=== PATIENT | female | born 1970 | race Caucasian/White ===

== ENCOUNTER 2021-11-18 14:25 | Outpatient (CLI) | payer OTHER, SELFPAY ==
--- NOTE | 2021-11-18 14:40 | CRLHL7_ITS ---
For Patients: As a result of the Century Cures Act, medical imaging exams and procedure reports are released immediately into your electronic medical record. You may view this report before your referring provider. If you have questions, please contact your health care provider. BILATERAL SCREENING MAMMOGRAM WITH COMPUTER-AIDED DETECTION AND TOMOSYNTHESIS TECHNIQUE: CC and MLO views were obtained. These mammographic images have been obtained using full-field digital technique. These mammographic images were interpreted with the benefit of computer-aided detection. Breast Tomosynthesis was used in this interpretation. COMPARISON FILM: [facility] 07/29/19, 08/15/17. FINDINGS: There are scattered areas of fibroglandular density IMPRESSION: There is no radiographic evidence for malignancy. ASSESSMENT: BI-RADS Category 1: Negative RECOMMENDATION: Routine screening mammogram in 1 year. A lay language report of this examination will be provided to the patient. Ramon Lake M.D. Diagnostic Radiologist [email or web address] BERTRAM/Dictated by: Ramon Lake MD @ 11/24/2021 1:23:00 PM (Electronically Signed)
== END 2021-11-18 14:26 | disposition home or self-care (01) ==
LOC: MAMMO 14:26
PROVIDERS: Visit Provider Family Medicine
DX: Z12.31 Encounter for screening mammogram for malignant neoplasm of breast (principal)
CPT/HCPCS: 77063; 77067

== ENCOUNTER 2022-04-21 10:13 | Outpatient (CLI) | payer OTHER, SELFPAY ==
[2022-04-21 11:37] LABS: Chloride* 109 mmol/L (96-114); Potassium* 4.4 mmol/L (3.6-5.1); Sodium* 141 mmol/L (135-149)
[2022-04-21 11:40] LABS: Blood Urea Nitrogen* 14 mg/dL (5-24); Carbon Dioxide* 28 mmol/L (20-32); Creatinine* 0.9 mg/dL (0.5-1.5); Estimated Glomerular Filt Rate 78 ml/min; Glucose* 95 mg/dL (60-115)
[2022-04-21 11:41] LABS: Calcium* 9.4 mg/dL (8.4-10.6)
[2022-04-21 11:51] LABS: Vitamin D 25 Hydroxy* 43 ng/mL (30-80)
== END 2022-04-21 10:14 | disposition home or self-care (01) ==
PROVIDERS: Visit Provider Family Medicine
DX: E55.9 Vitamin D deficiency, unspecified (principal)
CPT/HCPCS: 80048; 82306; 84443

== ENCOUNTER 2022-07-11 14:15 | Outpatient (RCR) | payer OTHER, SELFPAY ==
--- NOTE | 2022-06-27 16:20 | PT.OPEX ---
PT [facility] Outpatient Eval PT [facility] Outpatient Eval Start: 06/27/22 14:18 Freq: Status: Active Protocol: Document 06/27/22 14:18 [facility] (Rec: 06/27/22 16:02 [facility] [id number]) E-signed By Yomi Walker, PT Physical Therapy Outpatient Evaluation Insurance Information Insurance Name [employer] Medical Diagnosis Cervicalgia M54.2 Low back pain, unspecified M54 .50 Other chronic pain G89.[address] Ramon Roman Subjective Subjective Pt reports that ~2 years ago she herniated two discs in between her shoulder blades, pain in upper back and numbness down right UE. It then spread into her left UE. ~2 1/2 weeks ago she started having R UE symptoms (numbness ) while sleeping. She managed it by sitting in recliner and heating pad. Symptoms have again progressed and worsened to include wraparound pain under left breast/rib cage and left shoulder blade. Since starting the Prednisone, the distal UE symptoms have diminished but she still has left sided shoulder/rib pain and will get neck muscle spasms when the flexoril wears off. Date of Last Physician Visit 06/23/22 Current Work Status Short Term Disability Occupation Housecleaning for [employer]: work requirements are: getting on hands/knees onto floor to clean ER beds/floors, heavy lifting of linen/garbage bags (up to 35-50 lbs), push/ pulling cart/garbage cans simultaneously, repetitive UE/ circular motion, mopping (this is the most painful) Objective Other/Pertinent Objective Cervical: AROM Flexion: 33 deg, stretch at end range Extension: 45 deg, end range pain at base of neck Sidebend: R 20 (Pain L neck) L 25 deg (pain R neck/base of neck) Rotation: R 55 deg / L 45 deg (stiff but not painful) Cervical strength: Sidebend 4/ 5, Flexion 3+/5 painful base of neck Extension 4-/5 Shoulder: AROM WNL except left shoulder IR AROM painful in shoulder pain end range Shoulder Strength: grossly 4+/ 5 except L IR 4/5 and painful shoulder blade bicep 5/5, tricep 5/5 Cervical: compression and distraction both increased pain Palpation: + tenderness along cervical spine, upper traps and med scap border, bilaterally low tolerance for STM to cervical psps or cervical traction Posture: flattened cervical spine Sensation: light touch intact shirley UEs Upper limb tension tests: + for median and radial nerve tension R UE, negative otherwise Functional Test Performed & Score Neck Disability Index:26/50 - Severe Disability Assessment Assessment/Impression 51 year old female presents with signs and symptoms consistent with L > R UE radiculopathy from multi-level disc protrusions. This appears to be a flare of symptoms similar to impairments she had two years ago. At that time, an MRI from 06/04/20 confirmed multiple cervical disc protrusions, the most concerning at C5-6 w/ a left paracentral protrusion and moderate cord deformity. Despite a course of steroids ( which did help somewhat) and currently on Flexoril and pain meds, patient's symptoms remain highly irritable. She demonstrates low tolerance for soft tissue palpation and cervical traction worsened pain up and down her cervical spine, indicating dural irritation. Neck disability index scored a 26/50, which places her in the severe disability range. 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. The physical demands are too great and it would be very difficult to maintain a light duty status. I recommend a minimum of two weeks off from work, likely more, depending on how she responds to physical therapy. Primary Functional Limitations Heavy lifting, pushing/pulling , weight bearing through arms, repetitive motions of arms, mopping sleeping, prolonged sitting Plan of Care Rehabilitation Potential Good Rehabilitation Potential Comments Pt is self-motivated and will be compliant with PT Physical Therapy Goals In 4-6 weeks, patient will: 1) Tolerate repetitive circular motions of arms, below and above shoulder height, to be able to clean surfaces 2) Be able to get on hands and knees to clean ER room floors /base of beds, etc 3) Lift and transfer 35-50lb linen bag to cart pain max 3/ 10 4) Pull weighted garbage bin and push weighted cart, pain max 3/10 5) Report 75% improvement in sleep ability in regards to neck pain Coordination/Communication With Referral Source Treatment Plan/Direct Interventions Joint Mobilization,Manual Therapy,Neuromuscular Re-ed, Self-Care/Home Management, Therapeutic Activities, Therapeutic Exercises,Other - See Comments Direct Interventions Clarification AROM/strength, posture/neck Comments care, cervical stab ex, nerve mob, STM/traction Frequency/Duration 1-2x/week for 4-6 weeks Patient Will Be Discharged From Therapy Completion of LTG(s), Independent w/HEP, Independently Progressing Evaluation Billing Untimed Code Treatment Minutes 35 Complexity Moderate Certification Information Physician Comment/Change : Physician NPI Number #
== END 2022-11-08 23:59 | disposition home or self-care (01) ==
PROVIDERS: PCP Family Medicine; Visit Provider Family Medicine
DX: M54.2 Cervicalgia (principal); M54.50 Low back pain, unspecified; G89.29 Other chronic pain; Z51.89 Encounter for other specified aftercare
CPT/HCPCS: 97110; 97140; 97162; 97530

== ENCOUNTER 2022-11-04 12:51 | Emergency (ER) | payer OTHER, SELFPAY ==
[2022-11-04 12:54] VITALS: BP 147/82; PULSE 82; RESP 18; TEMP 36.6; O2SAT 98; BMI 23.4
[2022-11-04] MEDS: KETOROLAC 30 MG/ML inj IM (13:18)
[2022-11-04] MEDS: AMOXICILLIN/CLAVULANATE 875 mg/125 mg TABLET PO (13:19)
--- NOTE | 2022-11-04 13:28 | ED.NURSE ---
Wrapped some hibiclens soaked gauze around the arm to cleanse and disinfect.
--- NOTE | 2022-11-04 13:32 | ED.NURSE ---
Wound assessment: Patient has various scratches and punctures (appear to be mostly superficial) down the forearm to the hand. Slightly bleeding.
--- NOTE | 2022-11-04 13:36 | ED.ANIMALBIT ---
HPI - Animal Bite General Date Seen: 11/04/22 Chief Complaint: Animal Bite Stated Complaint: cat bite Time Seen by Provider: 11/04/22 12:53 History of Present Illness HPI narrative: Patient is a 52-year-old female presented emergency department for cat bite and scratch. She states it was her own cat is vaccinated for rabies. She states when family came over they brought a dog tired CT does not like dogs. The dog Tod scared the CT causing him to jump on her and scratch and bite her right arm multiple times. She states other than that the cat has been acting normally. She came in because she was aware she would probably need antibiotics. Says she is having pain to the right arm at this time. Denies any numbness or tingling. No other injuries noted. Related Data Home Medications Medication Instructions Recorded Confirmed diclofenac sodium 1 % topical gel 2 - 4 g topical QID PRN 05/12/22 06/28/22 (Voltaren Arthritis Pain) progesterone micronized 100 mg 100 mg PO QDAY 05/12/22 06/28/22 capsule Saccharomyces boulardii 250 mg 250 mg PO DAILY 06/19/22 06/28/22 capsule (Daily Probiotic (S. boulardii)) acetaminophen 650 mg 1,300 mg PO QDAY PRN 06/28/22 06/28/22 tablet,extended release (Tylenol Arthritis Pain) naproxen sodium 220 mg capsule 660 mg PO BID PRN 06/28/22 06/28/22 (Aleve) Previous Rx's Medication Instructions Recorded lidocaine 5 % topical ointment 1 applic topical QDAY PRN pain #60 09/28/21 grams estradiol 0.075 mg/24 hr 1 patch transdermal 2XW #24 ea 03/27/22 semiweekly transdermal patch cyclobenzaprine 10 mg tablet 10 mg PO BID PRN muscle spasm #60 06/28/22 tabs dextroamphetamine-amphetamine 10 10 mg PO QDAY #30 tabs 09/29/22 mg tablet (Adderall) dextroamphetamine-amphetamine 10 10 mg PO QDAY #30 tabs 09/29/22 mg tablet (Adderall) dextroamphetamine-amphetamine 10 10 mg PO QDAY #30 tabs 09/29/22 mg tablet (Adderall) dextroamphetamine-amphetamine ER 20 mg PO QAM #30 caps 09/29/22 20 mg 24hr capsule,extend release dextroamphetamine-amphetamine ER 20 mg PO QAM #30 caps 09/29/22 20 mg 24hr capsule,extend release (Adderall XR) dextroamphetamine-amphetamine ER 20 mg PO QAM #30 caps 09/29/22 20 mg 24hr capsule,extend release (Adderall XR) dextroamphetamine-amphetamine 20 20 mg PO QDAY #30 tabs 10/06/22 mg tablet (Adderall) amoxicillin 875 mg-potassium 1 tab PO BID #14 tabs 11/04/22 clavulanate 125 mg tablet Allergies Allergy/AdvReac Type Severity Reaction Status Date / Time gabapentin Allergy Intermediate groggy Verified 06/28/22 10:36 Review of Systems Narrative: ROS is negative unless otherwise stated in HPI PFSH PFS Medical History ADHD, predominantly inattentive type ?F90.0 - Attention-deficit hyperactivity disorder, predominantly inattentive type (ICD-10) Obstructive sleep apnea ?G47.33 - Obstructive sleep apnea (adult) (pediatric) (ICD-10) Vitamin D deficiency ?E55.9 - Vitamin D deficiency, unspecified (ICD-10) IBS (irritable bowel syndrome) ?K58.9 - Irritable bowel syndrome without diarrhea (ICD-10) History of migraine ?Z86.69 - Personal history of other diseases of the nervous system and sense organs (ICD-10) Exogenous obesity ?E66.09 - Other obesity due to excess calories (ICD-10) Chronic low back pain ?M54.50 - Low back pain, unspecified (ICD-10) ?G89.29 - Other chronic pain (ICD-10) Surgical History History of endometrial ablation ?Z98.890 - Other specified postprocedural states (ICD-10) History of tonsillectomy ?Z90.89 - Acquired absence of other organs (ICD-10) History of hand surgery ?Z98.890 - Other specified postprocedural states (ICD-10) History of appendectomy ?Z90.49 - Acquired absence of other specified parts of digestive tract (ICD-10) Family History Daughter ADHD Mother Diabetes Maternal Grandfather Diabetes Maternal Grandmother Diabetes Social History Narrative: , 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 Moist mucous membranes. CVS: Peripheral pulses 2+ and equal in all extremities MSK:Extremities w/o deformity, Normal Active ROM Skin: Warm, Dry. Multiple superficial abrasions to her right forearm Neuro: Normal Muscle tone, No focal neurological deficits. Psych: Awake, Alert, & Oriented x3. Appropriate mood and affect. Const: Vital Signs, click to edit/add: Vital Signs - 24 hr 11/04/22 12:54 Temperature 97.8 F Pulse Rate [Right Pulse Oximeter] 82 Respiratory Rate 18 Blood Pressure [Ri ght Upper Arm] 147/82 H Pulse Oximetry 98 Oxygen Delivery Me thod Room Air Course Vital Signs Vital signs: Initial Vital Signs Temperature 97.8 F 11/04/22 12:54 Temperature Source Temporal Artery Scan 11/04/22 12:54 Pulse Rate 82 11/04/22 12:54 Respiratory Rate 18 11/04/22 12:54 Blood Pressure 147/82 H 11/04/22 12:54 Blood Pressure Mean 103 11/04/22 12:54 Blood Pressure Position Sitting 11/04/22 12:54 Pulse Oximetry 98 11/04/22 12:54 Oxygen Delivery Method Room Air 11/04/22 12:54 Vital Signs Temperature 97.8 F 11/04/22 12:54 Pulse Rate 82 11/04/22 12:54 Respiratory Rate 18 11/04/22 12:54 Blood Pressure 147/82 H 11/04/22 12:54 Pulse Oximetry 98 11/04/22 12:54 Oxygen Delivery Method Room Air 11/04/22 12:54 Temperature 97.8 F 11/04/22 12:54 Pulse Rate 82 11/04/22 12:54 Respiratory Rate 18 11/04/22 12:54 Blood Pressure 147/82 H 11/04/22 12:54 Pulse Oximetry 98 11/04/22 12:54 Oxygen Delivery Method Room Air 11/04/22 12:54 MDM - Animal Bite MDM Narrative Medical decision making narrative: Patient is a 52-year-old female presenting for scratches in bites to her right forearm from her cat that has extended for rabies. She states those acting normal. She can manage for possible antibiotics. She says the pains and nontender right now Toradol was given for pain. She is started on Augmentin. No known medication allergies other than gabapentin. Since the cat is vaccinated for rabies and it is her cat I do not believe is necessary to start the rabies prophylaxis at this time. Patient is still having some pain and also the Toradol so 1 dose of oxycodone p.o. was given. Patient is agreeable to this plan. She was discharged home with Augmentin. Discharge Plan Discharge Clinical Impression: Cat bite Qualifiers: Encounter type: initial encounter Qualified Code(s): W55.01XA - Bitten by cat, initial encounter Patient Disposition: Home, Self-Care Condition: Stable Instructions: Animal Bite (ED) Additional Instructions: Follow-up with the primary care provider. Take the Augmentin as directed. Return for new or worsening symptoms. Activity Level: No Restrictions Discharge Diet: Regular Prescriptions: New amoxicillin-pot clavulanate 875-125 mg tablet 1 tab PO BID Qty: 14 0RF No Action progesterone micronized 100 mg capsule 100 mg PO QDAY Saccharomyces boulardii [Daily Probiotic (S. boulardii)] 250 mg capsule 250 mg PO DAILY naproxen sodium [Aleve] 220 mg capsule 660 mg PO BID PRN acetaminophen [Tylenol Arthritis Pain] 650 mg tablet extended release 1,300 mg PO QDAY PRN cyclobenzaprine 10 mg tablet 10 mg PO BID PRN (Reason: muscle spasm) Qty: 60 1RF lidocaine 5 % ointment 1 applic topical QDAY PRN (Reason: pain) Qty: 60 1RF estradiol 0.075 mg/24 hr patch semiweekly 1 patch transdermal 2XW Qty: 24 0RF Rx Instructions: apply 1 patch for 3 days alternating with 1 patch for 4 days each week for 3 wks per 4-wk cycle diclofenac sodium [Voltaren Arthritis Pain] 1 % gel 2 - 4 g topical QID PRN Rx Instructions: apply to single elbow, wrist or hand; for hand includes palm/fingers/back of hand dextroamphetamine-amphetamine [Adderall] 10 mg tablet 10 mg PO QDAY Qty: 30 0RF dextroamphetamine-amphetamine [Adderall] 10 mg tablet 10 mg PO QDAY Qty: 30 0RF dextroamphetamine-amphetamine [Adderall XR] 20 mg capsule,extended release 24hr 20 mg PO QAM Qty: 30 0RF dextroamphetamine-amphetamine [Adderall XR] 20 mg capsule,extended release 24hr 20 mg PO QAM Qty: 30 0RF dextroamphetamine-amphetamine [Adderall] 10 mg tablet 10 mg PO QDAY Qty: 30 0RF Rx Instructions: Take around 2 pm dextroamphetamine-amphetamine 20 mg capsule,extended release 24hr 20 mg PO QAM Qty: 30 0RF dextroamphetamine-amphetamine [Adderall] 20 mg tablet 20 mg PO QDAY Qty: 30 0RF Follow Up/Referrals: Ramon Roman MD [Primary Care Provider] - Stand Alone Forms: [facility] Info Instructions
[2022-11-04] MEDS: OXYCODONE 5 MG TABLET PO (13:48)
== END 2022-11-04 13:52 | disposition home or self-care (01) ==
PROVIDERS: Emergency Provider Student in an Organized Health Care Education/Training Program; PCP Family Medicine
DX: S41.151A Open bite of right upper arm, initial encounter (principal); W55.01XA Bitten by cat, initial encounter
CPT/HCPCS: 96372; 99282; 99283; 99284; A9270; J1885

== ENCOUNTER 2023-08-03 10:11 | Outpatient (CLI) | payer OTHER, SELFPAY ==
--- OUTSIDE RECORDS SUMMARY | 2023-08-03 10:13 | XMS_ITS | Clinical Summary ---
Author Organization [facility] Address [place], [place] [address] Care Team Providers Care Multimedia Coordinator Name Role Phone Unavailable Primary Care Provider Unavailabl e Allergies No known active allergies Medications Medication Sig Dispensed Refills Start Date End Date Status MEDROXYPROGESTERON E (CONTRACEPTIVE) 150 MG/ML IM SUSPIndications:Co ntraception inject 1 milliliter (150 mg) by intramuscular route every 3 months 1 0 11/05/2007 Active IBUPROFEN 200 MG TAB four tabs three times daily prn 0 12/23/2007 Active CPAP Autotitration cpap 4-20cm of H2O, with accessories dx780.57 1 0 01/14/2008 Active cyclobenzaprine (FLEXERIL) 10 mg tabletIndications: Tension headache Take 1 tablet by mouth 3 times daily. 30 tablet 1 01/20/2011 Active Active Problems Problem Noted Date Diagnosed Date Appendicitis with abscess 12/16/2009 Nicotine dependence 07/07/2008 Insomnia, unspecified 07/07/2008 Lateral Epicondyle Tendinosis 04/02/2008 KIM 12/28/2007 RDI- 5.5 01/14/2008 Dysthymic disorder 03/25/2007 Immunizations Name Administration Dates Next Due Hepatitis B (Adult) 09/05/1996,04/11/1994,1993 Influenza, IIV3 (Age >=3 years) 11/29/2010 MMR 05/20/2010 Td (Age >=7 Years) 04/29/2007,05/26/1997 Tuberculin (PPD) 04/25/2010 Varicella Vaccine 05/20/2010,08/14/1998 Family History Medical History Relation Name Comments Psychiatric illness Brother 1 Drug and alcolol issues Heart Disease Brother 2 Stroke Brother 3 Other Daughter 1 back issues,thy roid issues Other Daughter 2 cervical biopsy Unknown Father Arthritis Mother Diabetes Mother Heart Disease Mother Hyperlipidemia Mother Hypertension Mother Relation Name Status Comments Brother 1 Brother 2 Brother 3 Daughter 1 Daughter 2 Father Mother Social History Tobacco Use Types Packs/Day Years Used Date Smoking Tobacco: Every Day Cigarettes 0.3 25 Started: 06/10/1984; Last attempted to quit: 06/10/2009 Smokeless Tobacco: Never Alcohol Use Standard Drinks/Week Comments Yes 0 (1 standard drink = 0.6 oz pur e alcohol) occasional Sex and Gender Information Value Date Recorded Sex Assigned at Not on file Gender Identity Not on file Sexual Orientation Not on file Obstetrics History Para Term AB IAB SAB Ectopic Multiple Livin g Live Births 3 2 1 2 Date Outcome GA Total Labor Labor/2nd/3rd Weight Sex Delivery Anes PTL Rachel A1 A5 Name Cl in Para Para AB Last Filed Vital Signs Vital Sign Reading Time Taken Comments Blood Pressure 110/71 01/20/2011 9:44 AM WORK MANAGER Pulse 66 01/20/2011 9:44 AM WORK MANAGER Temperature 37 ??C (98.6 ??F) 01/24/2010 3:21 PM WORK MANAGER Respiratory Rate 16 01/19/2010 11:42 AM WORK MANAGER Oxygen Saturation 97% 01/19/2010 11:42 AM WORK MANAGER Inhaled Oxygen Concentration - - Weight 76.7 kg (169 lb 3.2 oz) 01/20/2011 9:44 A M WORK MANAGER Height 168.3 cm (5' 6.25) 11/29/2010 4:20 PM CD T Body Mass Index 27.1 11/29/2010 4:20 PM CDT Plan of Treatment Health Maintenance Due Date Last Done Comments Tdap 09/01/1983 Depression screening for age 12+ 1984 HIV for age 15-65 09/01/1987 BMI (ht and wt on same day) for age 18+ 1990 Hepatitis C screening for age 18-79 1990 Tetanus booster 04/29/2017 04/29/2007, 05/26/1997 Colonoscopy through age 75 2017 Lipids for age 45-75 2017 Mammogram for age 45-75 2017 Zoster (shingles) series for age 50+ (1 of 2) 2022 COVID-19 vaccine series ( - 2022-24 season) 2022 Influenza for age 50-64 11/11/2023 11/29/2010 Pap test for age 21-65 01/11/2024 , 01/10/2021, 09/28/2009, Additional history exists Pneumococcal series for age 6-64 Aged Out No longer eligible based on patient's age to complete this topic Procedures Procedure Name Priority Date/Time Associated Diagnosis Comments HPV THIN PREP Routine 01/10/2021 2:45 PM CDT from Last 3 Months or Most Recently Relevant to Health Maintenance Results * HPV HIGH RISK (01/10/2021 2:45 PM CDT) TYPE 16 Negative Negative 01/13/2021 3:09 PM CDT [facility] TYPE 18 Negative Negative 01/13/2021 3:09 PM CDT [facility] OTHER HIGH RISK TYPES Negative Negative 01/13/2021 3:09 PM CDT [facility] Other (Cervical/Vagina l) 01/10/2021 2:45 PM CDT 01/12/2021 9:36 AM CDT Narrative [facility] - 01/13/2021 3:09 PM CDT HPV types 16, 18, 31, 33, 35, 39, 45, 51, 52, 56, 58, 59, 66 and 68 DNA were undetectable or below the pre-set threshold. Methodology: [employer] 4800 HPV Test June L [facility] [address] [place] [address], [place] from Last 3 Months or Most Recently Relevant to Health Maintenance Advance Directives * Full Code (Latest Code Status on File) Date Activated Date Inactivated Comments 01/17/2010 4:42 PM 01/19/2010 4:36 PM * Full Code Date Activated Date Inactivated Comments 12/16/2009 7:53 PM 12/21/2009 1:33 PM
--- OUTSIDE RECORDS SUMMARY | 2023-08-03 10:13 | XMS_ITS | Clinical Summary ---
Author Organization [facility] Address [address] [place] [address]. [place] [address] Care Team Providers Care E Learning Manager Name Role Phone Cruz Soto MD Primary Care Provider [phone] Allergies Active Allergy Reactions Criticality Noted Date Comments Citalopram Unknown 05/13/2019 yawning Gabapentin Unknown 05/28/2014 Venlafaxine Anxiety Low 05/27/2019 Flight or fight sxs's Medications Medication Sig Dispensed Refills Start Date End Date Status dicyclomine (BENTYL) 20 MG tablet Take 20 mg by mouth 2 times daily Active ondansetron (ZOFRAN-ODT) 4 MG ODT tab Take 4 mg by mouth every 8 hours as needed for nausea Active hyoscyamine (LEVSIN/SL) 0.[address] 0.125 mg under the tongue every 8 hours as needed for cramping Active oxyCODONE (ROXICODONE) 5 MG tablet Take 1 tablet (5 mg) by mouth every 6 hours as needed for pain 12 tablet 01/17/2019 Active Active Problems Problem Noted Date Diagnosed Date Ischemic colitis (H24) 04/23/2019 Colitis 02/18/2018 Major depressive disorder, recurrent episode, mi ld (H24) 06/10/2014 Anxiety 06/10/2014 Hot flashes 06/10/2014 Tonsillar Calculus Overview: Created by Conversion Dyspareunia in female Overview: Created by Conversion Perimenopause Overview: Created by Conversion Joint Pain, Localized In The Hip Overview: Created by Conversion Dysthymic Disorder Overview: Created by Conversion Insomnia Overview: Created by Conversion Acute Tonsillitis Overview: Created by Conversion Lower Back Pain Overview: Created by Conversion Vitamin D Deficiency Overview: Created by Conversion Replacement Utility updated for latest IMO load Panic Disorder With Agoraphobia Overview: Created by Conversion Irritable bowel syndrome, unspecified type Sinus bradycardia Immunizations Name Administration Dates Next Due Flu, Unspecified 12/18/2011,11/29/2010 HepB, Unspecified 09/05/1996,04/11/1994,02/07/19 94 Influenza, seasonal, injectable, PF 12/11,01/01/2013,12/18/2011, 011 MMR 05/20/2010 TDAP (Adacel,Boostrix) 11/17/2015 Td,adult,historic,unspecified 04/29/2007, 998 Varicella 05/20/2010,08/14/1998 Social History Tobacco Use Types Packs/Day Years Used Date Smoking Tobacco: Former Smokeless Tobacco: Former Comments:summer 2018 Alcohol Use Standard Drinks/Week Comments No 0 (1 standard drink = 0.6 oz pur e alcohol) PHQ-2 Answer Date Recorded PHQ-2 Score 0 04/23/2019 Sex and Gender Information Value Date Recorded Sex Assigned at Not on file Gender Identity Not on file Sexual Orientation Not on file Last Filed Vital Signs Vital Sign Reading Time Taken Comments Blood Pressure 118/70 05/13/2019 2:14 PM BICYCLE I ASSEMBLER Pulse 60 05/13/2019 2:14 PM BICYCLE I ASSEMBLER Temperature 36.5 ??C (97.7 ??F) 04/23/2019 3:40 PM CS T Respiratory Rate 16 01/16/2019 8:21 PM BICYCLE I ASSEMBLER Oxygen Saturation 97% 05/13/2019 2:14 PM BICYCLE I ASSEMBLER Inhaled Oxygen Concentration - - Weight 74.4 kg (164 lb) 05/13/2019 2:14 PM BICYCLE I ASSEMBLER Height 167.6 cm (5' 6) 05/13/2019 2:14 PM BICYCLE I ASSEMBLER Body Mass Index 26.47 05/13/2019 2:14 PM BICYCLE I ASSEMBLER Plan of Treatment Not on file Care Teams E Learning Manager Relationship Specialty Start Date End Date Cruz Soto MD PCP - General Internal Medicine 01/16/19
--- OUTSIDE RECORDS SUMMARY | 2023-08-03 10:14 | XMS_ITS | Referral Summary ---
Author Organization [place] Address [facility] [place] [address] Care Team Providers Care Unit Supervisor Name Role Phone Cruz Soto MD Primary Care Provider [phone] Allergies Active Allergy Reactions Criticality Noted Date [...] Comments Blood Pressure 118/70 05/13/2019 2:14 PM DINING ROOM CAPTAIN Pulse 60 05/13/2019 2:14 PM DINING ROOM CAPTAIN Temperature 36.5 ??C (97.7 ??F) 04/23/2019 3:40 PM CS T Respiratory Rate 16 01/16/2019 8:21 PM DINING ROOM CAPTAIN Oxygen Saturation 97% 05/13/2019 2:14 PM DINING ROOM CAPTAIN Inhaled Oxygen Concentration - - Weight 74.4 kg (164 lb) 05/13/2019 2:14 PM DINING ROOM CAPTAIN Height 167.6 cm (5' 6) 05/13/2019 2:14 PM DINING ROOM CAPTAIN Body Mass Index 26.47 05/13/2019 2:14 PM DINING ROOM CAPTAIN Plan of Treatment Not on file Care Teams Unit Supervisor Relationship Specialty Start Date End Date Cruz Soto MD PCP - General Internal Medicine 01/16/19
--- OUTSIDE RECORDS SUMMARY | 2023-08-03 10:14 | XMS_ITS | Encounter Summary ---
Author Organization [place] Address [facility] [place] [address] Care Team Providers Care Hearing Therapy Director Name Role Phone Cruz Soto MD Primary Care Provider [phone] Cruz Soto MD Unavailable [phone] Encounter Details Date Type Department Care Team (Late st Contact Info) Description 02/14/2019 Records - [facility] CONVERSION Scan, Non-Provider Social History Tobacco Use Types Packs/Day Years Used Date Smoking Tobacco: Never Assessed Sex and Gender Information Value Date Recorded Sex Assigned at Not on file Gender Identity Not on file Sexual Orientation Not on file documented as of this encounter Plan of Treatment Not on file documented as of this encounter Visit Diagnoses Not on filedocumented in this encounter Care Teams Hearing Therapy Director Relationship Specialty Start Date End Date Cruz Soto MD PCP - General Internal Medicine 01/16/19 Cruz Soto MD [address] [place] [address] Assigned PCP 08/25/20 05/12/22 documented as of this encounter
== END 2023-08-03 10:12 | disposition home or self-care (01) ==
PROVIDERS: PCP Family Medicine; Visit Provider Family Medicine
DX: E55.9 Vitamin D deficiency, unspecified (principal); N95.1 Menopausal and female climacteric states
CPT/HCPCS: 80048; 80061; 82306; 82670; 83001; 83002; 84443

== ENCOUNTER 2023-12-05 09:25 | Outpatient (CLI) | payer OTHER, SELFPAY ==
--- NOTE | 2023-12-05 08:45 | CRLHL7_ITS ---
For Patients: As a result of the Century Cures Act, medical imaging exams and procedure reports are released immediately into your electronic medical record. You may view this report before your referring provider. If you have questions, please contact your health care provider. BILATERAL SCREENING MAMMOGRAM WITH COMPUTER-AIDED DETECTION AND TOMOSYNTHESIS TECHNIQUE: CC and MLO views were obtained. These mammographic images have been obtained using full-field digital technique. These mammographic images were interpreted with the benefit of computer-aided detection. Breast Tomosynthesis was used in this interpretation. COMPARISON FILM: 11/18/21, 07/29/19, 08/15/17. FINDINGS: There are scattered areas of fibroglandular density IMPRESSION: There is no radiographic evidence for malignancy. ASSESSMENT: BI-RADS Category 1: Negative RECOMMENDATION: Routine screening mammogram in 1 year. A lay language report of this examination will be provided to the patient. Ramon Lake M.D. Diagnostic Radiologist [email or web address] BERTRAM/Dictated by: Ramon Lake MD @ 12/13/2023 12:16:00 PM (Electronically Signed)
--- OUTSIDE RECORDS SUMMARY | 2023-12-05 09:31 | XMS_ITS | Clinical Summary ---
Author Organization [facility] Address [address] [place] [address]. [place] [address] Care Team Providers Care Instructional Facilitator Name Role Phone Cruz Soto MD Primary Care Provider [phone] Allergies Active Allergy Reactions Criticality Noted Date [...] Comments Blood Pressure 118/70 05/13/2019 2:14 PM LUBE MAN Pulse 60 05/13/2019 2:14 PM LUBE MAN Temperature 36.5 ??C (97.7 ??F) 04/23/2019 3:40 PM CS T Respiratory Rate 16 01/16/2019 8:21 PM LUBE MAN Oxygen Saturation 97% 05/13/2019 2:14 PM LUBE MAN Inhaled Oxygen Concentration - - Weight 74.4 kg (164 lb) 05/13/2019 2:14 PM LUBE MAN Height 167.6 cm (5' 6) 05/13/2019 2:14 PM LUBE MAN Body Mass Index 26.47 05/13/2019 2:14 PM LUBE MAN Plan of Treatment Not on file Care Teams Instructional Facilitator Relationship Specialty Start Date End Date Cruz Soto MD PCP - General Internal Medicine 01/16/19
--- OUTSIDE RECORDS SUMMARY | 2023-12-05 09:31 | XMS_ITS | Encounter Summary ---
Author Organization [place] Address [facility] [place] [address] Care Team Providers Care Leg Assembler Name Role Phone Cruz Soto MD Primary Care Provider [phone] Cruz Soto MD Unavailable [phone] Encounter Details Date Type Department Care [...] on filedocumented in this encounter Care Teams Leg Assembler Relationship Specialty Start Date End Date Cruz Soto MD PCP - General Internal Medicine 01/16/19 Cruz Soto MD [address] [place] [address] Assigned PCP 08/25/20 05/12/22 documented as of this encounter
--- OUTSIDE RECORDS SUMMARY | 2023-12-05 09:31 | XMS_ITS | Clinical Summary ---
Author Organization [facility] Address [place], [place] [address] Care Team Providers Care Associate Loan Officer Name Role Phone Unavailable Primary Care Provider [...] Outcome GA Total Labor Labor/2nd/3rd Weight Sex Type Anes PTL Rachel A1 A5 Name Clin Para Para AB Last Filed Vital Signs Vital Sign Reading Time Taken Comments Blood Pressure 110/71 01/20/2011 9:44 AM VP TRANSPORTATION Pulse 66 01/20/2011 9:44 AM VP [employer]SPORTATION Temperature 37 ??C (98.6 ??F) 01/24/2010 3:21 PM VP TRANSPORTATION Respiratory Rate 16 01/19/2010 11:42 AM VP TRANSPORTATION Oxygen Saturation 97% 01/19/2010 11:42 AM VP TRANSPORTATION Inhaled Oxygen Concentration - - Weight 76.7 kg (169 lb 3.2 oz) 01/20/2011 9:44 A M [employer]SP[employer] Height 168.3 cm (5' 6.25) 11/29/2010 4:20 [...] (1 of 2) 2022 COVID-19 vaccine series (2023- season) 2023 Influenza for age 50-64 11/11/2023 11/29/2010 Pap test for age 21-65 01/11/2024 , 01/10/2021, 09/28/2009, Additional history exists Pneumococcal series for age 6-64 Aged Out No longer eligible based on patient's age to complete this topic Procedures Procedure Name Priority Date/Time Associated Diagnosis Comments HPV HIGH RISK Routine 01/10/2021 2:45 PM CDT from Last 3 Months or Most Recently Relevant to Health Maintenance Results * HPV HIGH RISK (01/10/2021 2:45 PM CDT) TYPE 16 Negative Negative 01/13/2021 3:09 PM CDT [facility] TYPE 18 Negative Negative 01/13/2021 3:09 PM CDT [facility] OTHER HIGH RISK TYPES Negative Negative 01/13/2021 3:09 PM CDT [facility] Other (Cervical/Vagina l) 01/10/2021 2:45 PM CDT 01/12/2021 9:36 AM CDT Narrative [facility] - 01/13/2021 3:09 PM CDT HPV types 16, 18, 31, 33, 35, 39, 45, 51, 52, 56, 58, 59, 66 and 68 DNA were undetectable or below the pre-set threshold. Methodology: [employer]00 HPV Test June [employer] [address] [place] [address], [place] from Last 3 Months or Most Recently Relevant to Health Maintenance Advance Directives * Full Code (Latest Code Status on File) Date Activated Date Inactivated Comments 01/17/2010 4:42 PM 01/19/2010 4:36 PM * Full Code Date Activated Date Inactivated Comments 12/16/2009 7:53 PM 12/21/2009 1:33 PM
--- OUTSIDE RECORDS SUMMARY | 2023-12-05 09:31 | XMS_ITS | Referral Summary ---
Author Organization [place] Address [facility]0 [facility] [place] [address] Care Team Providers Care Screening Specialist Name Role Phone Cruz Soto MD Primary Care Provider [phone] Allergies Active Allergy Reactions Criticality Noted Date [...] Comments Blood Pressure 118/70 05/13/2019 2:14 PM MEAT SEAFOOD ASSOCIATE Pulse 60 05/13/2019 2:14 PM MEAT SEAFOOD ASSOCIATE Temperature 36.5 ??C (97.7 ??F) 04/23/2019 3:40 PM CS T Respiratory Rate 16 01/16/2019 8:21 PM MEAT SEAFOOD ASSOCIATE Oxygen Saturation 97% 05/13/2019 2:14 PM MEAT SEAFOOD ASSOCIATE Inhaled Oxygen Concentration - - Weight 74.4 kg (164 lb) 05/13/2019 2:14 PM MEAT SEAFOOD ASSOCIATE Height 167.6 cm (5' 6) 05/13/2019 2:14 PM MEAT SEAFOOD ASSOCIATE Body Mass Index 26.47 05/13/2019 2:14 PM MEAT SEAFOOD ASSOCIATE Plan of Treatment Not on file Care Teams Screening Specialist Relationship Specialty Start Date End Date Cruz Soto MD PCP - General Internal Medicine 01/16/19
== END 2023-12-05 09:26 | disposition home or self-care (01) ==
LOC: MAMMO 09:25
PROVIDERS: PCP Family Medicine; Visit Provider Family Medicine
DX: Z12.31 Encounter for screening mammogram for malignant neoplasm of breast (principal)
CPT/HCPCS: 77063; 77067